=== PATIENT | female | born 1980 | race Caucasian/White ===

== ENCOUNTER 2016-10-15 13:15 | Emergency (ER) | payer OTHER ==
[~2016-10-15] VITALS: Ht 177.8 cm; Wt 134.7 kg
[2016-10-15] MEDS ORDERED: NS 1,000 ML IV ONE (14:00)
[2016-10-15] MEDS ORDERED: METOCLOPRAMIDE INJ 10MG/2ML VIAL (J2765) IV ONE (14:00)
--- NOTE | 2016-10-15 14:21 | REP ---
CT Head without contrast HISTORY: Headache. COMPARISON: None There is no intraparenchymal hemorrhage, acute infarct, mass or midline shift. The ventricular system is normal in appearance. There is no extra cerebral collection. There is no fracture. The visualized sinuses are clear. IMPRESSION: There is no intracranial lesion. Signed by Frederick Means MD 10/15/2016 02:13 P
[2016-10-15 14:34] LABS: BASO % 0.7 % (0.0-1.0); EOS # 0.2 K/mm3 (0.0-0.50); EOS % 2.7 % (0.0-3.0); LARGE UNSTAINED CELL # 0.1 K/mm3 (0.0-0.4); LARGE UNSTAINED CELL % 1.1 % (0.0-4.0); LYMPH # 2.4 K/mm3 (1.5-4.5); LYMPH % 28.2 % (24.0-44.0); MEAN CORPUSCULAR HEMOGLOBIN 31.7 pg (27.0-33.0); MEAN CORPUSCULAR HGB CONC 35.1 g/dl (32.0-36.5); MEAN CORPUSCULAR VOLUME 90.5 fl (80.0-96.0); MONO # 0.4 K/mm3 (0.0-0.8); MONO % 4.7 % (0.0-5.0); NEUTROPHILS # 5.2 K/mm3 (1.8-7.7); NEUTROPHILS % 62.7 % (36.0-66.0); PLATELET COUNT, AUTOMATED 295 k/mm3 (150-450); RED CELL DISTRIBUTION WIDTH 12.5 % (11.5-14.5); WHITE BLOOD COUNT 8.2 K/mm3 (4.0-10.0)
[2016-10-15] MEDS ORDERED: KETOROLAC 30 MG/ML VIAL (J1885) IV ONE (14:45)
[2016-10-15 14:51] LABS: ANION GAP 7 MEQ/L (8-16); BLOOD UREA NITROGEN 15 MG/DL (7-18); CALCIUM LEVEL 8.9 MG/DL (8.5-10.1); CARBON DIOXIDE LEVEL 25 MEQ/L (21-32); CHLORIDE LEVEL 107 MEQ/L (98-107); CREATININE FOR GFR 0.64 MG/DL (0.55-1.02); GLOMERULAR FILTRATION RATE > 60.0 (>60); GLUCOSE, FASTING 186 MG/DL (70-105); POTASSIUM SERUM 3.7 MEQ/L (3.5-5.1); SODIUM LEVEL 139 MEQ/L (136-145)
[2016-10-15 15:46] VITALS: BP 145/87
== END 2016-10-15 15:58 | disposition home or self-care (01) ==
LOC: M ED 13:15
DX: R51 Headache (principal); F17.210 Nicotine dependence, cigarettes, uncomplicated

== ENCOUNTER → 2017-09-02 | Outpatient (CLI) | payer OTHER | LOC: M RAD 08:16 | DX: R10.11 Right upper quadrant pain (principal) | CPT/HCPCS: 76705 ==

== ENCOUNTER → 2017-09-22 | Outpatient (CLI) | payer OTHER ==
[2017-09-22 15:12] LABS: ALBUMIN 3.8 GM/DL (3.2-5.2); ALBUMIN/GLOBULIN RATIO 1.15 (1.00-1.93); ALKALINE PHOSPHATASE 85 U/L (45-117); ALT/SGPT 32 U/L (12-78); ANION GAP 8 MEQ/L (8-16); AST/SGOT 14 U/L (7-37); BILIRUBIN,TOTAL 0.3 MG/DL (0.2-1.0); BLOOD UREA NITROGEN 11 MG/DL (7-18); C REACTIVE PROTEIN QUANTITATIV 0.74 MG/DL (0.00-0.30); CALCIUM LEVEL 8.8 MG/DL (8.5-10.1); CARBON DIOXIDE LEVEL 29 MEQ/L (21-32); CHLORIDE LEVEL 104 MEQ/L (98-107); CREATININE FOR GFR 0.67 MG/DL (0.55-1.30); GLOMERULAR FILTRATION RATE > 60.0 (>60); GLUCOSE, FASTING 192 MG/DL (70-100); HEMATOCRIT 41.1 % (36.0-47.0); HEMOGLOBIN 14.2 g/dl (12.0-15.5); MEAN CORPUSCULAR HEMOGLOBIN 30.8 pg (27.0-33.0); MEAN CORPUSCULAR HGB CONC 34.5 g/dl (32.0-36.5); MEAN CORPUSCULAR VOLUME 89.2 fl (80.0-96.0); PLATELET COUNT, AUTOMATED 339 10^3/uL (150-450); RED BLOOD COUNT 4.61 10^6/uL (4.00-5.40); RED CELL DISTRIBUTION WIDTH 12.2 % (11.5-14.5); SODIUM LEVEL 141 MEQ/L (136-145); TOTAL PROTEIN 7.1 GM/DL (6.4-8.2); WHITE BLOOD COUNT 10.2 10^3/uL (4.0-10.0)
== END ==
LOC: M LAB 14:30
DX: R10.11 Right upper quadrant pain (principal)
CPT/HCPCS: 80053

== ENCOUNTER 2021-11-11 19:33 | Emergency (ER) | payer OTHER ==
[~2021-11-11] VITALS: Ht 177.8 cm; Wt 118.2 kg
[2021-11-11 19:33] VITALS: BP 142/81
[2021-11-11 21:21] LABS: BASO # 0.1 10^3/uL (0.0-0.2); BASO % 0.5 % (0.0-1.0); EOS # 0.3 10^3/uL (0.0-0.5); EOS % 2.4 % (0.0-3.0); HEMATOCRIT 41.8 % (36.0-47.0); HEMOGLOBIN 14.4 g/dl (12.0-15.5); LYMPH # 4.2 10^3/uL (1.5-5.0); LYMPH % 30.8 % (24.0-44.0); MEAN CORPUSCULAR HEMOGLOBIN 31.8 pg (27.0-33.0); MEAN CORPUSCULAR HGB CONC 34.4 g/dl (32.0-36.5); MEAN CORPUSCULAR VOLUME 92.3 fl (80.0-96.0); MONO # 0.9 10^3/uL (0.0-0.8); MONO % 6.9 % (2.0-8.0); PLATELET COUNT, AUTOMATED 364 10^3/uL (150-450); RED BLOOD COUNT 4.53 10^6/uL (4.00-5.40); WHITE BLOOD COUNT 13.5 10^3/uL (4.0-10.0)
[2021-11-11 22:04] LABS: ALBUMIN 3.4 GM/DL (3.2-5.2); ALT/SGPT 24 U/L (12-78); BILIRUBIN,DIRECT < 0.1 MG/DL (0.0-0.2); BILIRUBIN,TOTAL 0.1 MG/DL (0.2-1.0); BLOOD UREA NITROGEN 11 MG/DL (7-18); CALCIUM LEVEL 8.7 MG/DL (8.5-10.1); CARBON DIOXIDE LEVEL 30 MEQ/L (21-32); CHLORIDE LEVEL 105 MEQ/L (98-107); CREATININE FOR GFR 0.65 MG/DL (0.55-1.30); GLOMERULAR FILTRATION RATE > 60.0 (>60); GLUCOSE, FASTING 176 MG/DL (70-100); LIPASE 205 U/L (73-393); SODIUM LEVEL 136 MEQ/L (136-145); TOTAL PROTEIN 6.9 GM/DL (6.4-8.2)
[2021-11-11 22:24] LABS: HCG, SERUM QUALITATIVE NEGATIVE (NEGATIVE)
[2021-11-13] MEDS ORDERED: HYDR-3713 PO (23:12)
[2021-11-13] MEDS ORDERED: CARA1TAB6 PO (23:12)
[2021-11-13] MEDS ORDERED: ONDA4TAB6 PO (23:12)
[2021-11-13] MEDS ORDERED: PROT1TAB2 PO (23:12)
== END 2021-11-12 01:12 | disposition left against medical advice (07) ==
LOC: M ED 19:33
DX: Z53.29 Procedure and treatment not carried out because of patient's decision for other reasons (principal)

== ENCOUNTER 2021-11-13 15:44 | Emergency (ER) | payer OTHER ==
[~2021-11-13] VITALS: Ht 177.8 cm; Wt 118.6 kg
[2021-11-13 18:24] LABS: BASO # 0.1 10^3/uL (0.0-0.2); BASO % 0.4 % (0.0-1.0); EOS # 0.1 10^3/uL (0.0-0.5); EOS % 0.6 % (0.0-3.0); HEMATOCRIT 44.1 % (36.0-47.0); HEMOGLOBIN 14.7 g/dl (12.0-15.5); LYMPH # 2.3 10^3/uL (1.5-5.0); LYMPH % 18.3 % (24.0-44.0); MEAN CORPUSCULAR HEMOGLOBIN 30.9 pg (27.0-33.0); MEAN CORPUSCULAR HGB CONC 33.3 g/dl (32.0-36.5); MEAN CORPUSCULAR VOLUME 92.8 fl (80.0-96.0); MONO # 0.8 10^3/uL (0.0-0.8); MONO % 6.2 % (2.0-8.0); NEUTROPHILS # 9.3 10^3/uL (1.5-8.5); NEUTROPHILS % 74.2 % (36.0-66.0); PLATELET COUNT, AUTOMATED 404 10^3/uL (150-450); RED BLOOD COUNT 4.75 10^6/uL (4.00-5.40); WHITE BLOOD COUNT 12.5 10^3/uL (4.0-10.0)
[2021-11-13] MEDS ORDERED: NS 1,000 ML IV ONE (18:55)
[2021-11-13] MEDS ORDERED: ONDANSETRON 4MG 2ML VIAL IV ONE (18:55)
[2021-11-13] MEDS ORDERED: MORPHINE 4 MG/ML 1ML VIAL/SYRINGE IV ONE (18:55)
[2021-11-13 18:59] LABS: ALBUMIN 3.8 GM/DL (3.2-5.2); ALT/SGPT 22 U/L (12-78); BILIRUBIN,DIRECT < 0.1 MG/DL (0.0-0.2); BILIRUBIN,TOTAL 0.4 MG/DL (0.2-1.0); LIPASE 148 U/L (73-393); TOTAL PROTEIN 7.6 GM/DL (6.4-8.2)
[2021-11-13] MEDS ORDERED: ISOVUE-370 76% 100ML VIAL As Ordered ONE (20:10)
[2021-11-13] MEDS ORDERED: KETOROLAC 30 MG/ML 1ML VIAL IV ONE (20:55)
[2021-11-13] MEDS ORDERED: METOCLOPRAMIDE INJ 10MG/2ML VIAL (J2765 PER 1) IV ONE (20:55)
[2021-11-13] MEDS ORDERED: PANTOPRAZOLE 40MG VIAL IV ONE (21:25)
[2021-11-13] MEDS ORDERED: SUCRALFATE SUSP 1GM/10ML UD PO ONE (21:25)
[2021-11-13 22:13] VITALS: BP 137/76
[2021-11-13] MEDS ORDERED: ONDA4TAB6 PO (23:12)
[2021-11-13] MEDS ORDERED: CARA1TAB6 PO (23:12)
[2021-11-13] MEDS ORDERED: HYDR-3713 PO (23:12)
[2021-11-13] MEDS ORDERED: PROT1TAB2 PO (23:12)
== END 2021-11-13 23:31 | disposition home or self-care (01) ==
LOC: M ED 15:44
DX: K29.70 Gastritis, unspecified, without bleeding (principal); Z88.0 Allergy status to penicillin; F17.210 Nicotine dependence, cigarettes, uncomplicated
CPT/HCPCS: 74177; 80047; 80076; 81001; 83690; 84702; 85025; 96361; 96374; 96375; 99284; C9113; J1885; J2270; J2405; J2765; Q9967

== ENCOUNTER 2022-01-19 09:49 | Emergency (ER) | payer OTHER ==
[~2022-01-19] VITALS: Ht 177.8 cm; Wt 114.6 kg
[~2022-01-19 09:49] MED LIST: CARA1TAB6 PO; HYDR-3713 PO; ONDA4TAB6 PO; PROT1TAB2 PO
[2022-01-19] MEDS ORDERED: DEBL1TAB (10:06)
[2022-01-19 10:52] LABS: RSV AMPLIFICATION NEGATIVE (NEGATIVE)
[2022-01-19 11:56] LABS: BASO % 0.3 % (0.0-1.0); EOS # 0.1 10^3/uL (0.0-0.5); EOS % 1.2 % (0.0-3.0); HEMATOCRIT 43.8 % (36.0-47.0); HEMOGLOBIN 14.6 g/dl (12.0-15.5); LYMPH # 2.8 10^3/uL (1.5-5.0); LYMPH % 24.9 % (24.0-44.0); MEAN CORPUSCULAR HEMOGLOBIN 30.4 pg (27.0-33.0); MEAN CORPUSCULAR HGB CONC 33.3 g/dl (32.0-36.5); MEAN CORPUSCULAR VOLUME 91.1 fl (80.0-96.0); MONO # 0.8 10^3/uL (0.0-0.8); MONO % 7.3 % (2.0-8.0); NEUTROPHILS # 7.5 10^3/uL (1.5-8.5); NEUTROPHILS % 65.9 % (36.0-66.0); PLATELET COUNT, AUTOMATED 404 10^3/uL (150-450); RED BLOOD COUNT 4.81 10^6/uL (4.00-5.40); WHITE BLOOD COUNT 11.3 10^3/uL (4.0-10.0)
[2022-01-19] MEDS ORDERED: ALBUTEROL 90 MCG/ACT 8GM HFA INHALER INH ONE (12:00)
[2022-01-19 12:25] LABS: BLOOD UREA NITROGEN 8 MG/DL (7-18); CALCIUM LEVEL 8.8 MG/DL (8.5-10.1); CARBON DIOXIDE LEVEL 26 MEQ/L (21-32); CHLORIDE LEVEL 108 MEQ/L (98-107); CREATININE FOR GFR 0.66 MG/DL (0.55-1.30); GLOMERULAR FILTRATION RATE > 60.0 (>60); GLUCOSE, FASTING 148 MG/DL (70-100); POTASSIUM SERUM 4.1 MEQ/L (3.5-5.1); SODIUM LEVEL 138 MEQ/L (136-145)
[2022-01-19] MEDS ORDERED: PRED20TA PO (12:59)
[2022-01-19] MEDS ORDERED: VENTAER INH (12:59)
[2022-01-19 13:12] VITALS: BP 136/75
== END 2022-01-19 13:14 | disposition home or self-care (01) ==
LOC: M ED 09:49
DX: J45.901 Unspecified asthma with (acute) exacerbation (principal); K52.9 Noninfective gastroenteritis and colitis, unspecified; E66.9 Obesity, unspecified; Z87.442 Personal history of urinary calculi; F17.200 Nicotine dependence, unspecified, uncomplicated; Z88.0 Allergy status to penicillin

== ENCOUNTER → 2022-06-14 | Outpatient (CLI) | payer OTHER ==
[~2022-06-14] MED LIST changes: +DEBL1TAB; +PRED20TA PO; +VENTAER INH
== END ==
LOC: M LABSMTC 11:48
PROVIDERS: ATTEND Anesthesiology
DX: Z01.812 Encounter for preprocedural laboratory examination (principal)

== ENCOUNTER 2022-06-17 12:01 | Day surgery (SDC) | payer OTHER ==
[~2022-06-17] VITALS: Ht 177.8 cm; Wt 111.2 kg
[~2022-06-17 12:01] MED LIST changes: +NS 1,000 ML IV ONE
[2022-06-17 14:22] VITALS: BP 140/85
== END 2022-06-17 14:34 | disposition home or self-care (01) ==
LOC: M OPP 12:01
PROVIDERS: ATTEND Internal Medicine Gastroenterology
DX: K22.89 Other specified disease of esophagus (principal); K29.70 Gastritis, unspecified, without bleeding; F17.200 Nicotine dependence, unspecified, uncomplicated; E11.9 Type 2 diabetes mellitus without complications; J45.909 Unspecified asthma, uncomplicated; Z79.51 Long term (current) use of inhaled steroids; Z88.1 Allergy status to other antibiotic agents; Z86.19 Personal history of other infectious and parasitic diseases; Z80.52 Family history of malignant neoplasm of bladder